=== PATIENT | female | born 1980 | race American Indian/Alaskan Native ===

== ENCOUNTER 2017-10-17 20:47 | Emergency (ER) | payer MEDICAID ==
[2017-10-17 22:52] LABS: Hematocrit 35.6 % (30.3-42.9); Hemoglobin 11.7 gm/dl (10.1-14.3); Mean Corpuscular HGB Conc 33 % (30-34); Mean Corpuscular Hemoglobin 28 pg (28-32); Mean Corpuscular Volume 87 fl (79-97); Platelet Count 300 K/mm3 (140-440); Red Blood Count 4.11 M/mm3 (3.65-5.03); Red Cell Distribution Width 13.4 % (13.2-15.2); White Blood Count 6.5 K/mm3 (4.5-11.0)
[2017-10-17 23:00] LABS: Anion Gap 14 mmol/L; BUN/Creatinine Ratio 20; Blood Urea Nitrogen 14 mg/dL (7-17); Calcium 9.2 mg/dL (8.4-10.2); Carbon Dioxide 25 mmol/L (22-30); Chloride 96.3 mmol/L (98-107); Glucose 83 mg/dL (65-100); Potassium 4.1 mmol/L (3.6-5.0); Sodium 131 mmol/L (137-145)
[2017-10-17 23:12] LABS: Bilirubin,Urine NEG (Negative); Blood,Urine LG (Negative); Ketones,Urine NEG (Negative); Leukocyte Esterase,Urine TR (Negative); Nitrite,Urine NEG (Negative); Urobilinogen,Urine < 2.0 mg/dL (<2.0)
[2017-10-17 23:13] LABS: RBC,Urine > 182.0 /HPF (0.0-6.0)
--- NOTE | 2017-10-18 01:50 | Emergency Department Report ---
ED Female HPI - General Chief complaint: Vaginal Bleeding Stated complaint: VAGINAL BLEEDING Time Seen by Provider: 10/18/17 01:31 Source: patient Mode of arrival: Ambulatory Limitations: No Limitations - History of Present Illness Initial comments: 37-year-old female past medical history 1 currently , anxiety, PTSD presents with complaint of vaginal bleeding with passing some clots since yesterday. Patient is approximately 7-8 weeks by LMP. LMP 09/05/17. Patient states that after an episode of sex with her partner yesterday she began persistently bleeding. States she has gone through several pads within the last 24 hours. Denies fevers or chills. Complaining of crampy lower abdominal pain intermittently. Denies vaginal discharge otherwise. MD Complaint: vaginal bleeding Onset/Timin -: days(s) Severity: mild Severity scale (0 -10): 3 Quality: cramping Consistency: constant Are you Now?: Yes Last Menstrual Period: 09/05/17 EDC: 06/12/18 Associated Symptoms: vaginal bleeding - Related Data Previous Rx's Medication Instructions Recorded Last Taken Type Ibuprofen [Motrin] 800 mg PO Q8HR PRN #20 tablet 10/18/17 Unknown Rx Nitrofurantoin Monohyd/M-Cryst 100 mg PO BID #14 capsule 10/18/17 Unknown Rx [Macrobid 100 mg Capsule] Allergies Allergy/AdvReac Type Severity Reaction Status Date / Time No Known Allergies Allergy Unverified 10/17/17 22:00 ED Review of Systems ROS: Stated complaint: VAGINAL BLEEDING Other details as noted in HPI Constitutional: denies: chills, fever Eyes: denies: eye pain, eye discharge, vision change ENT: denies: ear pain, throat pain Respiratory: denies: cough, shortness of breath, wheezing Cardiovascular: denies: chest pain, palpitations Endocrine: no symptoms reported Gastrointestinal: denies: abdominal pain, nausea, diarrhea Genitourinary: as per HPI. denies: urgency, dysuria, discharge Musculoskeletal: denies: back pain, joint swelling, arthralgia Skin: denies: rash, lesions Neurological: denies: headache, weakness, paresthesias Psychiatric: denies: anxiety, depression Hematological/Lymphatic: denies: easy bleeding, easy bruising ED Past Medical Hx - Past Medical History Hx Psychiatric Treatment: Yes (depression,PTSD) - Social History Smoking Status: Never Smoker Substance Use Type: None - Medications Home Medications: Home Medications Medication Instructions Recorded Confirmed Last Taken Type Ibuprofen [Motrin] 800 mg PO Q8HR PRN #20 tablet 10/18/17 Unknown Rx Nitrofurantoin Monohyd/M-Cryst 100 mg PO BID #14 capsule 10/18/17 Unknown Rx [Macrobid 100 mg Capsule] ED Physical Exam - General Limitations: No Limitations General appearance: alert, in no apparent distress - Head Head exam: Present: atraumatic, normocephalic - Eye Eye exam: Present: normal appearance, PERRL, EOMI - ENT ENT exam: Present: mucous membranes moist - Neck Neck exam: Present: normal inspection - Respiratory Respiratory exam: Present: normal lung sounds bilaterally. Absent: respiratory distress - Cardiovascular Cardiovascular Exam: Present: regular rate, normal rhythm. Absent: systolic murmur, diastolic murmur, rubs, gallop - GI/Abdominal GI/Abdominal exam: Present: soft, normal bowel sounds - External exam: Present: normal external exam Speculum exam: Present: vaginal bleeding (some dark blood with tiny clots in the vaginal vault, no active hemorrhage) Bi-manual exam: Present: normal bi-manual exam (no CMT and no adnexal tenderness ) - Extremities Exam Extremities exam: Present: normal inspection - Back Exam Back exam: Present: normal inspection - Neurological Exam Neurological exam: Present: alert, oriented X3, CN II-XII intact, normal gait - Psychiatric Psychiatric exam: Present: normal affect, normal mood - Skin Skin exam: Present: warm, dry, intact, normal color. Absent: rash ED Course Vital Signs 10/17/17 10/18/17 21:57 02:50 Temperature 98.5 F Pulse Rate 98 H 91 H Respiratory 18 18 Rate Blood Pressure 126/71 Blood Pressure 130/76 [Left] O2 Sat by Pulse 99 100 Oximetry ED Medical Decision Making - Lab Data Result diagrams: 10/17/17 22:04 10/17/17 22:09 - Medical Decision Making A/P: Threatened miscarriage/spontaneous miscarriage, asymptomatic bacteuria 1-case discussed with before discharge 2-ultrasound shows no IUP, hCG level low for a number of possible weeks 3-I informed patient that she has likely miscarriage based on clinical history labs and ultrasound report. I advised patient that it is extremely important to follow up with [facility] within the next 1-2 weeks as she will require repeat ultrasounds and hCG levels to track completion of miscarriage. I advised patient that if she cannot follow-up or get an appointment with [facility] that she can return to the ED in 3-4 days for repeat ultrasound and hCG level as per . Rh+, patient's blood type O+ 4- leukocytes and patient's urine will treat empirically with Macrobid. Motrin when necessary for pain Critical care attestation.: If time is entered above; I have spent that time in minutes in the direct care of this critically ill patient, excluding procedure time. ED Disposition Clinical Impression: Miscarriage, Vaginal bleeding Disposition: TO HOME OR SELFCARE Is pt being admited?: No Does the pt Need Aspirin: No Condition: Stable Instructions: Spontaneous Miscarriage (ED), Threatened Miscarriage (ED) Prescriptions: Ibuprofen [Motrin] 800 mg PO Q8HR PRN #20 tablet PRN Reason: Pain Nitrofurantoin Monohyd/M-Cryst [Macrobid 100 mg Capsule] 100 mg PO BID #14 capsule Referrals: [facility] [Provider Group] - 3-5 Days [facility] [Provider Group] - 3-5 Days [facility] [Provider Group] - 3-5 Days Forms: Work/School Release Form(ED) Time of Disposition: 02:40
--- NOTE | 2017-10-18 02:14 | Ultrasound Report ---
FINAL REPORT PROCEDURE: US OB under 14 weeks TECHNIQUE: Real-time transabdominal sonography of the uterus, placenta, amniotic fluid, adnexa, and fetus was performed with image documentation. Measurements were obtained to determine age/size. M-mode Doppler was used to document heartbeat. HISTORY: vaginal bleed COMPARISON: No prior studies are available for comparison. FINDINGS: Uterus measures 10.4 x 5.6 x 6.9 centimeters. The endometrium measures 9.4 millimeters in thickness. There is no endometrial fluid. There is a uterine fibroid in the posterior body measuring 2 centimeters. There is a 5 millimeters cystic structure in the lower uterine segment which could be an early intrauterine gestational sac. There is no yolk sac, pole or cardiac activity. Beta HCG measurements may be helpful. Right ovary measures 3.4 x 1.5 x 2.7 centimeters and contains 16 millimeter complex cyst. Left ovary measures 2.7 x 1.9 x 1.6 centimeters. There is no free pelvic fluid. IMPRESSION: Questionable early intrauterine gestational sac. No pole, yolk sac or cardiac activity is seen. Followup beta HCG measurements may be helpful. There is a probable hemorrhagic cyst in the right ovary. There is no ovarian torsion. There is no free pelvic fluid.
--- NOTE | 2017-10-18 02:14 | Ultrasound Report ---
FINAL REPORT PROCEDURE: US OB TRANSVAGINAL TECHNIQUE: Real-time transvaginal sonography of the uterus, placenta, amniotic fluid, adnexa, and fetus was performed with image documentation. Measurements were obtained to determine age/size. M-mode Doppler was used to document heartbeat. CPT 66606 HISTORY: vaginal bleed COMPARISON: No prior studies are available for comparison. FINDINGS: Uterus measures 10.4 x 5.6 x 6.9 centimeters. The endometrium measures 9.4 millimeters in thickness. There is no endometrial fluid. There is a uterine fibroid in the posterior body measuring 2 centimeters. There is a 5 millimeters cystic structure in the lower uterine segment which could be an early intrauterine gestational sac. There is no yolk sac, pole or cardiac activity. Beta HCG measurements may be helpful. Right ovary measures 3.4 x 1.5 x 2.7 centimeters and contains 16 millimeter complex cyst. Left ovary measures 2.7 x 1.9 x 1.6 centimeters. There is no free pelvic fluid. IMPRESSION: Questionable early intrauterine gestational sac. No pole, yolk sac or cardiac activity is seen. Followup beta HCG measurements may be helpful. There is a probable hemorrhagic cyst in the right ovary. There is no ovarian torsion. There is no free pelvic fluid.
[2017-10-18 02:52] VITALS: BP 130/76
== END 2017-10-18 02:52 | disposition home or self-care (01) ==
LOC: ED 20:47
DX: O03.9 Complete or unspecified spontaneous abortion without complication (principal); F32.9 Major depressive disorder, single episode, unspecified
CPT/HCPCS: 36415; 76801; 76817; 80048; 81001; 84702; 85027; 86900; 86901; 87210; 87591

== ENCOUNTER 2020-09-21 09:04 | Day surgery (SDC) | payer MEDICAID ==
--- NOTE | 2020-09-21 08:03 | History and Physical Report ---
History of Present Illness Date of examination: 09/21/20 Chief complaint: Desires Permanent Sterilization History of present illness: Pt is a 40 year old female who presents for surgical sterilization. She is aware of long acting reversible contraceptive methods and desires to proceed. Past History Past Medical History: other (sleep apnea, obesity, tinnitus, hearing loss) Past Surgical History: section (08/08/20) [employer] [employer]ORTER History: chlamydia (remote history ) Family/Genetic History: diabetes, heart disease Social history: no significant social history - Obstetrical History : 8 Para: 6 Hx # Term Pregnancies: 5 Number of Pregnancies: 1 Spontaneous Abortions: 1 Induced : 1 Number of Living Children: 5 Medications and Allergies Allergies Allergy/AdvReac Type Severity Reaction Status Date / Time Latex, Natural Rubber Allergy Itching Verified 09/20/20 11:48 Home Medications Medication Instructions Recorded Confirmed Last Taken Type Gabapentin 900 mg PO HS 09/20/20 09/20/20 Unknown History buPROPion SR [Wellbutrin Sr] 150 mg PO QAM 09/20/20 09/20/20 Unknown History Active Meds: Active Medications Acetaminophen (Tylenol) 1,000 mg PO PREOP LIZETTE Stop: 09/21/20 23:59 Gabapentin (Gabapentin) 600 mg PO PREOP NR Stop: 09/21/20 23:59 Lactated Ringer's (Lactated Ringers) 1,000 mls @ 100 mls/hr IV DIRECT LIZETTE Stop: 09/21/20 23:59 Cefazolin Sodium 3 gm/ Sodium (Chloride) 100 mls @ 100 mls/30 min IV PREOP NR; Protocol Midazolam HCl (Versed) 2 mg IV PREOP NR Stop: 09/21/20 23:59 Review of Systems All systems: negative - Physical Exam Abdomen: Positive: soft (obese ) Results All other labs normal. Assessment and Plan A: Undesired Fertility Grandmultiparity Obesity Obstructive Sleep Apnea Hearing Loss Tinnitus Latex allergy P: Proceed with laparoscopic tubal ligation and other indicated procedures
[~2020-09-21 09:04] MED LIST: ACETAMINOPHEN 500 MG TAB PO SCH; BUPIVACAINE/PF (0.5%) 5 MG/1 ML 30 ML VIAL INFILTRATI ONE; GABAPENTIN 300 MG CAP PO NR; LACTATED RINGERS 1,000 ML IV SCH; MIDAZOLAM 2 MG/2 ML INJ IV NR
--- NOTE | 2020-09-21 09:56 | Anesthesia Consultation ---
Anesthesia Consult and Med Hx Date of service: 09/21/20 - Airway Anesthetic Teeth Evaluation: Good ROM Head & Neck: Adequate Mental/Hyoid Distance: Adequate Mallampati Class: Class III Intubation Access Assessment: Possibly Difficult - Pulmonary Exam CTA: Yes - Cardiac Exam Cardiac Exam: RRR - Pre-Operative Health Status ASA Pre-Surgery Classification: ASA2 Proposed Anesthetic Plan: General - Pulmonary Hx Smoking: Yes (<1 pack per week) Hx Respiratory Symptoms: No Hx Sleep Apnea: Yes (noncompliant with CPAP) - Cardiovascular System Hx Hypertension: No Hx Heart Attack/AMI: No - Central Nervous System CVA: No Hx Psychiatric Problems: Yes (anxiety) - Gastrointestinal Hx Gastroesophageal Reflux Disease: No - Endocrine Hx Renal Disease: No Hx Liver Disease: No Hx Insulin Dependent Diabetes: No Hx Non-Insulin Dependent Diabetes: No Hx Thyroid Disease: No Hx Hypothyroidism: No - Other Systems Hx Obesity: Yes (BMI 39) - Additional Comments Anesthesia Medical History Comments: No prior GA or FHx anesthetic complications.
--- NOTE | 2020-09-21 09:57 | Anesthesia Day of Surgery ---
Anesthesia Day of Surgery - Day of Surgery Patient Examined: Yes Patient H&P Reviewed: Yes Patient is NPO: Yes
[2020-09-21] MEDS ORDERED: ONDANSETRON 4 MG/2 ML INJ IV PRN (10:00)
[2020-09-21] MEDS ORDERED: SCOPOLAMINE TRANSDERMAL PATCH 72 HR TD NR (10:00)
[2020-09-21] MEDS ORDERED: HYDROmorphone 1 MG/1 ML INJ IV PRN (10:00)
[2020-09-21 11:21] LABS: Hematocrit 36.3 % (30.3-42.9); Mean Corpuscular HGB Conc 33 % (30-34); Mean Corpuscular Volume 85 fl (79-97); Platelet Count 294 K/mm3 (140-440); Red Blood Count 4.25 M/mm3 (3.65-5.03); Red Cell Distribution Width 13.3 % (13.2-15.2)
[2020-09-21] MEDS ORDERED: fentaNYL 100 MCG/2 ML INJ ONE (11:58)
[2020-09-21] MEDS ORDERED: ROCURONIUM 50 MG/5 ML INJ IV ONE (11:58)
[2020-09-21] MEDS ORDERED: propofoL 200 MG/20 ML VIAL IV ONE (11:59)
[2020-09-21] MEDS ORDERED: SILVER NITRATE APPLICATOR 1 EA TP ONE (12:50)
[2020-09-21] MEDS ORDERED: BUPIVACAINE/PF (0.5%) 5 MG/1 ML 30 ML VIAL INFILTRATI ONE ×2 (12:54)
[2020-09-21] MEDS ORDERED: dexAMETHasone 20 MG/5 ML VIAL ONE (13:11)
[2020-09-21] MEDS ORDERED: ONDANSETRON 4 MG/2 ML INJ ONE (13:11)
[2020-09-21] MEDS ORDERED: KETOROLAC 30 MG/1 ML INJ ONE (13:11)
[2020-09-21] MEDS ORDERED: LACTATED RINGERS 1,000 ML ONE (13:33)
[2020-09-21] MEDS ORDERED: NEOSTIGMINE 10MG/10 ML INJ MDV ONE (13:41)
[2020-09-21] MEDS ORDERED: GLYCOPYRROLATE 0.4 MG/2 ML INJ ONE (13:41)
--- NOTE | 2020-09-21 14:07 | Operative Report ---
Operative Report Operative Report: Date of Surgery: September 21, 2020 Preoperative Diagnosis: 1) Undesired Fertility 2) Obesity Postoperative Diagnosis: Same 3) Intrabdominal Adhesions Procedure: 1) Laparoscopic Bilateral Salpingectomy 2) Lysis of Adhesions Surgeon: Maria Ines Chicas MD Dip Guider Stoves: Lady Amaro MD Anesthesia: GETA Findings: 1) Small anteroverted uterus 2) Adhesion of epiploic fat to the uterine fundus 3) Adhesion of left tube to pelvic side wall EBL: 25 mL Specimen: Bilateral fallopian tubes to pathology Complications: None. Counts correct x 2 Disposition: Stable to PACU Indication for Procedure: This patient is a 40 year old female who presents for surgical sterilization. She is aware of long acting reversible contraceptives as well as tubal ligation and she desires to proceed with bilateral salpingectomy. Operation In Detail: After the risks, benefits, complications and alternatives were explained to the patient, she gave informed consent for the procedure. She was then taken to the operating room and placed in the dorsal supine position with her IV noted to be running well and SCDs in place and functioning. General endotracheal anesthesia was induced without difficulty. The patient was then placed in the dorsal lithotomy position and prepped and draped in a normal sterile fashion. A time out was then performed. An exam under anesthesia revealed a small anteverted uterus. A zamora catheter was placed. A bi-valve speculum was placed in the vagina to visualize the cervix. A single tooth tenaculum was placed on the anterior lip of the cervix for traction. A uterine manipulator was then placed. The speculum and tenaculum were removed from the vagina atraumatically. The surgeon's gloves were then changed. Attention was then turned to entry into the abdominal cavity. A 5 mm infraumbilical incision was made with an 11 blade. The skin was grasped on either side of the umbilicus with towel clips and tented up. The Veres needle was placed into the peritoneal cavity, confirmed with a saline drop test. The abdomen was then insufflated with CO2 gas to a pressure of 15 mmHg. A 5 mm Visiport trocar was then placed with some difficulty. An anatomic survey was then performed with findings as indicated above. A second trocar site was created 2 cm superior to the pubic symphysis in the midline measuring 8 mm. An 8 mm trocar was then placed under direct visualization. A third 5 mm trocar was placed in the LLQ under direct visualization. This site was deemed to be too m edial for adequate access and a fourth 5 mm trocar site was created 5 cm lateral to the first. The patient was placed in the Trendelenburg position. An adhesion of epiploic fat to the uterine fundus was lysed with Ligasure device. The uterus was elevated, and each fallopian tube was followed out to the fimbriae. The left fallopian tube was noted to be adherent to the uterine sidewall. Sharp dissec tion with Monopolar scissors was used to free the tube. At this time, the left tube was grasped with a grasper for countertraction, and excised using a 5 mm Ligasure device. Next the right tube was grasped with a grasper for countertraction and excised using a 5 mm Ligasure device. Both fallopian tubes were removed through the 8 mm port and sent to pathology. At this time, all instruments and trocars were removed from the abdominal cavity. The pneumoperitoneum was released. The incisions were then infiltrated with quarter percent Marcaine. The incisions were then reapproximated with 3-0 M onocryl in a subcuticular fashion. They were then covered with skin glue. All instruments were then removed atraumatically from the vagina, and the zamora catheter was removed. At this time the procedure was ended. The patient was placed into the dorsal supine position and extubated without difficulty. She was subsequently taken to the PACU in stable condition. All instrument, needle and lap counts were correct 2.
--- NOTE | 2020-09-21 14:10 | Short Stay Summary ---
Short Stay Documentation Date of service: 09/21/20 - History H&P: dictated Social history: no significant social history - Allergies and Medications Current Medications: Allergies Latex, Natural Rubber Allergy (Verified 09/20/20 11:48) Itching Home Medications Medication Instructions Recorded Confirmed Last Taken Type Gabapentin 900 mg PO HS 09/20/20 09/21/20 09/20/20 History buPROPion SR [Wellbutrin Sr] 150 mg PO QAM 09/20/20 09/21/20 09/21/20 08:30 History [facility] Tablet 1 tab PO QDAY 09/21/20 09/21/20 09/20/20 History Active Medications Acetaminophen (Tylenol) 1,000 mg PO PREOP LIZETTE Stop: 09/21/20 23:59 Last Admin: 09/21/20 11:00 Dose: 1,000 mg Documented by: Gabapentin (Gabapentin) 600 mg PO PREOP NR Stop: 09/21/20 23:59 Last Admin: 09/21/20 11:00 Dose: 600 mg Documented by: Hydromorphone HCl (Dilaudid) 0.5 mg IV Q10MIN PRN PRN Reason: Pain , Severe (7-10) Stop: 09/21/20 17:00 Lactated Ringer's (Lactated Ringers) 1,000 mls @ 100 mls/hr IV DIRECT LIZETTE Stop: 09/21/20 23:59 Last Admin: 09/21/20 10:48 Dose: 100 mls/hr Documented by: Cefazolin Sodium 3 gm/ Sodium (Chloride) 100 mls @ 100 mls/30 min IV PREOP NR; Protocol Stop: 09/21/20 16:00 Midazolam HCl (Versed) 2 mg IV PREOP NR Stop: 09/21/20 23:59 Last Admin: 09/21/20 11:24 Dose: 2 mg Documented by: Ondansetron HCl (Zofran) 4 mg IV ONCE PRN PRN Reason: Nausea And Vomiting Stop: 09/21/20 16:00 Scopolamine (Transderm-Scop) 1 each TD PREOP NR Stop: 09/21/20 20:00 Last Admin: 09/21/20 11:02 Dose: 1 each Documented by: - Brief post op/procedure progress note Date of procedure: 09/21/20 Pre-op diagnosis: Undesired Fertility, Morbid Obesity Post-op diagnosis: other (Same, Adhesions) Procedure: Laparoscopic Bilateral Salpingectomy Lysis of Adhesions Anesthesia: GETA Findings: 1) Normal sized anteverted uterus 2) Adhesion of epiploic fat to the uterine fundus 3) Adhesion of left tube to pelvic side wall Surgeon: POLINA CHICAS Call Center Recruiter: CRESENCIO ROBERTS Estimated blood loss: minimal (25 mL) Pathology: list (bilateral fallopian tubes) Specimen disposition: to lab Condition: stable - Hospital course Hospital course: Pt underwent laparoscopic bilateral salpingectomy and lysis of adhesions which she tolerated well. She was observed in the PACU until she met discharge criteria. She will follow up in [address] Chicas. - Disposition Condition at discharge: Stable Disposition: - TO HOME OR SELFCARE - Discharge Diagnoses (1) Encounter for sterilization Status: Acute (2) Obesity (BMI 35.0-39.9 without comorbidity) Status: Acute Short Stay Discharge Plan Activity: other (Nothing in vagina or tub baths for 4 wks ) Weight Bearing Status: Full Weight Bearing Diet: regular Wound: keep clean and dry Follow up with: POLINA CHICAS MD [Staff Physician] - 7 Days Prescriptions: Ibuprofen [Motrin] 800 mg PO Q8HR PRN #30 tablet PRN Reason: Pain, Moderate (4-6) oxyCODONE /ACETAMINOPHEN [Percocet 5/325] 1 tab PO Q6HR PRN #30 tablet PRN Reason: Pain
[2020-09-21] MEDS ORDERED: oxyCODONE /ACETAMINOPHEN 5-325MG TAB ONE (14:39)
--- NOTE | 2020-09-21 15:23 | Post Anesthesia Evaluation ---
- Post Anesthesia Evaluation Patient Participated: Yes Airway Patent: Yes Stable Respiratory Function: Yes Nausea/Vomiting: No Temp > 96.8F: Yes Pain Manageable: Yes Adequeate Hydration: Yes Anesthesia Complications: No
[2020-09-21 20:19] VITALS: BP 142/82
== END 2020-09-21 09:05 | disposition home or self-care (01) ==
LOC: OR 09:04
PROVIDERS: ATTEND Obstetrics & Gynecology
DX: Z30.2 Encounter for sterilization (principal); E66.9 Obesity, unspecified; K66.0 Peritoneal adhesions (postprocedural) (postinfection); F17.210 Nicotine dependence, cigarettes, uncomplicated; G43.909 Migraine, unspecified, not intractable, without status migrainosus; G47.30 Sleep apnea, unspecified; F41.9 Anxiety disorder, unspecified; F32.9 Major depressive disorder, single episode, unspecified; Z79.899 Other long term (current) drug therapy; Z91.040 Latex allergy status; Z68.39 Body mass index [BMI] 39.0-39.9, adult; Z98.890 Other specified postprocedural states; Z83.3 Family history of diabetes mellitus; Z88.8 Allergy status to other drugs, medicaments and biological substances; Z80.8 Family history of malignant neoplasm of other organs or systems; Z86.2 Personal history of diseases of the blood and blood-forming organs and certain disorders involving the immune mechanism
CPT/HCPCS: 36415; 58661; 81025; 85027; 88302; J0690; J1100; J1170; J1885; J2250; J2405; J2704; J2710; J3010; J7120